=== PATIENT | female | born 1985 | race Caucasian/White ===

== ENCOUNTER 2017-06-04 15:32 | Emergency (ER) | payer OTHER ==
[2017-06-04 16:01] VITALS: BMI 23.8
[2017-06-04 16:02] VITALS: BP 111/76
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
[2017-06-04 17:01] VITALS: PULSE 88; RESP 18; TEMP 98.3
[2017-06-04 19:08] VITALS: O2SAT 99
== END 2017-06-04 17:00 | disposition home or self-care (01) ==
LOC: C.ER 15:32
DX: S13.4XXA Sprain of ligaments of cervical spine, initial encounter (principal); V89.2XXA Person injured in unspecified motor-vehicle accident, traffic, initial encounter